=== PATIENT | female | born 1945 | race Asian ===

== ENCOUNTER 2020-06-23 11:42 | Emergency (ER) | payer BC ==
--- NOTE | 2020-06-23 13:05 | ER Document Report ---
ED General - General Chief Complaint: Weakness Stated Complaint: DIZZINESS Time Seen by Provider: 06/23/20 12:07 - HPI Notes: Chief complaint: Generalized weakness and fatigue History of present illness: 75-year-old [place] female brought in by her grandson with a 3-day history of significant fatigue and generalized weakness without any focal neurologic symptoms. The patient is not regularly under the care physician, takes no medications and has no known allergies. Patient says she is eating and drinking normally. She denies fever or chills. She denies dysuria. She denies cough or shortness of breath. She denies headache. She denies skin rashes. - Related Data Allergies/Adverse Reactions: No Known Allergies Allergy (Unverified 06/23/20 16:30) Past Medical History - General Information source: Patient, Relative - Social History Smoking Status: Former Smoker Chew tobacco use (# tins/day): No Frequency of alcohol use: None Drug Abuse: None Lives with: Family Family History: Reviewed & Not Pertinent - Medical History Medical History: Negative Past Surgical History: Reports: Hx Cholecystectomy Review of Systems - Review of Systems Notes: Constitutional: Negative for fever. HENT: Negative for sore throat. Eyes: Negative for visual changes. Cardiovascular: Negative for chest pain. Respiratory: Negative for shortness of breath. Gastrointestinal: Negative for abdominal pain, vomiting or diarrhea. Genitourinary: Negative for dysuria. Musculoskeletal: Negative for back pain. Skin: Negative for rash. Neurological: Negative for headaches, focal weakness or numbness. 10 point ROS negative except as marked above and in HPI. Physical Exam - Vital signs Vitals: Temp Pulse Resp BP Pulse Ox 98.8 F 76 16 141/64 H 98 06/23/20 11:47 06/23/20 11:47 06/23/20 11:47 06/23/20 11:47 06/23/20 11:47 - Notes Notes: GENERAL: Elderly female appearing in no acute distress. SKIN: Good turgor no rashes. HEAD: Normocephalic atraumatic. EYES: PERRLA. EOMI. Conjunctivae and sclerae clear. EARS: CANALS AND TMS CLEAR. NOSE: CLEAR. MOUTH: Moist mucosa. Good dentition. No stridor or edema. No drooling. NECK: Supple. No masses or thyromegaly. No adenopathy. Carotids 2+ without bruits. No JVD. BACK: Symmetrical without tenderness. CHEST: Respirations unlabored. Breath sounds clear and symmetrical. HEART: Regular rhythm. No murmur gallop or rub. ABDOMEN: Soft nontender without masses, organomegaly or rebound. Bowel sounds normally active. No bruits. GENITALIA: Deferred. EXTREMITIES: No edema. No calf tenderness. Cap refill less than 1.5 seconds. Dorsalis pedis and posterior tibial pulses 3+ and symmetrical. NEUROLOGICAL: GCS 15. Alert and oriented x3. Fluent speech. Cranial nerves II through XII intact. Sensorimotor and cerebellar normal. Normal tone. PSYCHIATRIC: Appropriate affect. Course - Re-evaluation Re-evalutation: 06/23/20 17:52 Previously healthy 75-year-old female came in with profound weakness over the last 3 days and was found to have positive Covid test. She is afebrile hemodynamically stable and is oxygenating normally. She has no pneumonia on her x-ray and is not coughing. Her oral fluid intake is adequate. She appears well-hydrated. She did receive a liter normal saline while here. She was also given Decadron IV. I spoke with the patient and her grandson through a production utility worker. They understand current recommendations for supportive care at home and to be return here immediately for new or worsening symptoms. Specifically she is to come back if she develops severe shortness of breath or persistent vomiting or diarrhea or for overall worsening. I will start her on oral steroids at home. Findings, clinical impression and plan of treatment have been discussed with patient/family. Understanding of current findings and recommendations has been acknowledged by them and there is agreement regarding disposition and follow-up. - Vital Signs Vital signs: Temp Pulse Resp BP Pulse Ox 98.8 F 65 17 149/71 H 97 06/23/20 11:47 06/23/20 12:44 06/23/20 14:43 06/23/20 14:43 06/23/20 14:43 - Laboratory Results Result Diagrams: 06/23/20 13:48 06/23/20 13:48 Laboratory Results Interpreted: 06/23/20 06/23/20 06/23/20 13:48 13:48 13:48 WBC 3.6 L Plt Count 147 L Carbon Dioxide 31 H Urine Blood MODERATE H SARS-CoV-2 (PCR) 06/23/20 13:48 WBC Plt Count Carbon Dioxide Urine Blood SARS-CoV-2 (PCR) DETECTED H Critical Laboratory Results Reviewed: Yes Attending or Supervising Physician who Reviewed Labs: YESSENIA VELAZQUEZ - Radiology Results Critical Radiology Results Reviewed: No Critical Results - EKG Interpretation by Me Additional EKG results interpreted by me: 06/23/20 14:35 Twelve-lead EKG reviewed by me contemporaneously: 1256 hrs. Indication for study: Generalized weakness Rhythm: Normal sinus Rate: 69 Intervals: Normal intervals QRS axis: +[address]/T wave changes: None Comparison with prior tracing: None Interpretation: Normal tracing Discharge - Discharge Clinical Impression: COVID-19 virus infection Condition: Stable Disposition: HOME, SELF-CARE Instructions: COVID-19 Guidance for Persons Under Investigation Additional Instructions: Increase oral fluids. Tylenol as needed. Take prescribed medication as directed. Return here as needed for new or worsening symptoms: Increasing shortness of breath Coughing up blood Pain that is worsening or unimproved Uncontrolled vomiting or diarrhea High fever or shaking chills Overall worsening Remain on isolation at home for the next 10 days. You may follow-up with referral doctor/clinic. Prescriptions: Prednisone [Deltasone 20 mg Tablet] 2 tab PO DAILY 5 Days tablet Referrals: [facility] [Provider Group] - Follow up as needed
--- NOTE | 2020-06-23 13:28 | RADIOLOGY REPORT (SQ) ---
EXAM DESCRIPTION: CHEST SINGLE VIEW IMAGES COMPLETED DATE/TIME: 06/23/2020 1:15 pm REASON FOR STUDY: weakness COMPARISON: None. EXAM PARAMETERS: NUMBER OF VIEWS: One view. TECHNIQUE: Single frontal radiographic view of the chest acquired. RADIATION DOSE: NA LIMITATIONS: None. FINDINGS: LUNGS AND PLEURA: Hyper aeration. No focal consolidation, pleural effusion, or pneumothor ax. MEDIASTINUM AND HILAR STRUCTURES: Ectatic appearing thoracic aorta. HEART AND VASCULAR STRUCTURES: Normal cardiac silhouette. No central vascular congestion. BONES: No acute findings. HARDWARE: None in the chest. OTHER: No other significant finding. IMPRESSION: No evidence of acute cardiopulmonary abnormality. Background of emphysematous changes. TECHNICAL DOCUMENTATION: JOB ID: [id number] 2010 for; to (do)- All Rights Reserved Reading location - IP/workstation name: [email or web address]
[2020-06-23 14:27] LABS: ABSOLUTE LYMPHOCYTES (AUTO) 1.3 10^3/uL (0.5-4.7); ABSOLUTE MONOCYTES (AUTO) 0.3 10^3/uL (0.1-1.4); ABSOLUTE NEUT (AUTO) 1.9 10^3/uL (1.7-8.2); BASOPHILS % (AUTO) 0.3 % (0-2); EOSINOPHILS % (AUTO) 0.1 % (0-6); HEMATOCRIT 39.8 % (36.0-47.0); HEMOGLOBIN 13.3 g/dL (12.0-15.5); LYMPHOCYTES % (AUTO) 35.5 % (13-45); MEAN CORPUSCULAR HEMOGLOBIN 29.2 pg (27.0-33.4); MEAN CORPUSCULAR HGB CONC 33.3 g/dL (32.0-36.0); MEAN CORPUSCULAR VOLUME 88 fl (80-97); MONOCYTES % (AUTO) 9.4 % (3-13); PLATELET COUNT 147 10^3/uL (150-450); RED BLOOD COUNT 4.56 10^6/uL (3.72-5.28); RED CELL DISTRIBUTION WIDTH 13.4 % (11.5-14.0); SEGMENTED NEUTROPHILS % (AUTO) 54.7 % (42-78); TOTAL CELLS COUNTED % (AUTO) 100 %; WHITE BLOOD COUNT 3.6 10^3/uL (4.0-10.5)
[2020-06-23 14:28] LABS: APPEARANCE,URINE CLEAR; BILIRUBIN,URINE NEGATIVE (NEGATIVE); COLOR,URINE STRAW; GLUCOSE, URINE NEGATIVE (NEGATIVE); KETONES,URINE NEGATIVE (NEGATIVE); LEUKOCYTE ESTERASE,URINE NEGATIVE (NEGATIVE); NITRITE,URINE NEGATIVE (NEGATIVE); PROTEIN,URINE NEGATIVE (NEGATIVE); URINE SPECIFIC GRAVITY 1.005; UROBILINOGEN,URINE NEGATIVE mg/dL (<2.0)
[2020-06-23 14:37] LABS: ALBUMIN 4.2 g/dL (3.5-5.0); ALKALINE PHOSPHATASE 81 U/L (38-126); ANION GAP 6 (5-19); ASPARTATE AMINO TRANSFERASE 26 U/L (14-36); BILIRUBIN,DIRECT 0.2 mg/dL (0.0-0.4); BILIRUBIN,TOTAL 0.4 mg/dL (0.2-1.3); BLOOD UREA NITROGEN 12 mg/dL (7-20); CARBON DIOXIDE 31 mmol/L (22-30); CHLORIDE 103 mmol/L (98-107); CREATINE KINASE 51 U/L (30-135); GLUCOSE 100 mg/dL (75-110); POTASSIUM 4.2 mmol/L (3.6-5.0); TOTAL PROTEIN 7.5 g/dL (6.3-8.2)
[2020-06-23 14:49] LABS: CREATINE KINASE MB 0.34 ng/mL (<4.55)
[2020-06-23 14:50] LABS: TROPONIN I < 0.012 ng/mL
[2020-06-23] MEDS ORDERED: DEXAMETHASONE SOD PHOS INJ 10 MG/1 ML VIAL IV ONE (15:30)
[2020-06-23 16:35] VITALS: BP 149/71
--- NOTE | 2020-06-23 20:35 | EKG REPORT ---
SEVERITY:- NORMAL ECG - SINUS RHYTHM : Confirmed by: Kamille Morgan MD 23-Jun-2020 20:34:40
== END 2020-06-23 18:24 | disposition home or self-care (01) ==
LOC: ER 11:42
DX: U07.1 COVID-19 (principal); R53.1 Weakness; Z87.891 Personal history of nicotine dependence
CPT/HCPCS: 93005; 99285; 96374; 36415; 82553; 82550; 85025; 0202U; 80053; 81001; 84484; 71045; 93010; J1100; C9803